=== PATIENT | male | born 1970 | race Caucasian/White ===

== ENCOUNTER 2024-11-25 23:00 | Inpatient (IN) | payer SELFPAY ==
[2024-11-25] VITALS (7 sets, daily range): BP systolic 152–217; BP diastolic 95–123; BMI 24.9; BMI 25.8
--- NOTE | 2024-11-25 15:18 | ED.GENMED ---
History of Present Illness
General
Chief Complaint: Skin Surface Trauma
Source: patient
Time Seen by Provider: 11/25/24 14:39
History of Present Illness
History of Present Illness:
54-year-old male presents to the emergency room complaining of laceration to his left knee. Patient was using a chainsaw when it moved unexpectedly and struck him over the left knee. He suffered a large laceration there was clinic. Patient is
able to weight-bear. He is able to flex and extend at the knee.
Past History
Social History
Tobacco: Smoker
Employment: Employed
Phy Exam
Physical Exam
Physical Exam:
General: Awake, Alert, Oriented X3. No acute distress.
Vitals: unremarkable
Head: Atraumatic
Eyes: Pupils equal, EOMI
Throat: Airway intact, no exudates
Neck: Trachea midline
Lungs: Clear and equal b/l
Heart: Regular rate, no murmurs
Neuro: Nonfocal
Skin: Warm, dry, no rash
Extremities: pulses equal dorsalis pedis and posterior tibial arteries b/l, large at least 10 cm laceration which begins in the central knee and extends medially over the lateral aspect of the knee. Patient is able to lift the leg off the bed with
the knee extended. He has significant pain with passive flexion. The deepest portion of the laceration seems to be medial to the patella. With flexion there was a spurt of fluid which did not appear to originate from the subcutaneous area but
perhaps intra-articularly.
Course
Orders/Labs/Results
Orders:
Orders
11/25/24 14:01
CR Knee - Left 4 Or More View* Urgent
Comment:
Reason For Exam: laceration
11/25/24 15:18
CeFAZolin 2 GRAM [Ancef] 2 grams in 10 ml IV NOW
11/25/24 15:29
Basic Metabolic Panel Urgent
Complete Blood Count/With Diff Urgent
11/25/24 16:36
HYDROmorphone [Dilaudid] 0.5 mg IV NOW STA
11/25/24 16:57
CeFAZolin 2 GRAM [Ancef] 2 grams in 10 ml IV PRE PROCEDURE
Povidone Iodine 10% Solution [Povidone Iodine 10%] 114 ml 0.9% Sod Chloride 3000 ml Irr [Nss Irrigation Bag] 3,000 ml IRRIG OR
11/25/24 16:58
Povidone Iodine 10% Solution [Povidone Iodine 10%] 114 ml 0.9% Sod Chloride 3000 ml Irr [Nss Irrigation Bag] 3,000 ml IRRIG OR
Povidone Iodine 10% Solution [Povidone Iodine 10%] 114 ml 0.9% Sod Chloride 3000 ml Irr [Nss Irrigation Bag] 3,000 ml IRRIG OR
11/25/24 17:00
CeFAZolin 2 GRAM [Ancef] 2 grams in 10 ml IV PRE PROCEDURE
11/25/24 17:47
HYDROmorphone [Dilaudid] 0.25 mg IV PACU-Q5MPRN PRN
HYDROmorphone [Dilaudid] 0.5 mg IV PACU-Q5MPRN PRN
Meperidine [Demerol] 12.5 mg IV PACU-Q5MPRN PRN
Ondansetron Injectable [Zofran] 4 mg IV PACU-ONCEPRN PRN
Prochlorperazine [Compazine] 5 mg IV PACU-ONCEPRN PRN
Notify MD As Directed
Notify physician if: for SDS patients with known or suspected sleep obstructive sleep apnea, monitor in the
PACU.
Notify MD for any apneic/desaturation episodes
O2 Therapy [RESP] Urgent
Titrate/Wean O2 to maintain O2 sat greater than (%): 92
Special Instructions: -Provide supplemental oxygen to achieve O2 sat of 92% or greater.
-After 15 min, may wean O2 and discontinue if patient is able to maintain O2 sat of 92%
or greater during recovery period.
If patient is a discharge home, without oxygen therapy, notify anestheiologist if
unable to maintain O2 SAT of 92% or greater on room air for MD clearance.
11/25/24 18:00
Normosol (Mult Electrolytes) [Normosol-R/Plasmalyte-A] 1,000 ml IV PER PROTOCOL
11/25/24 18:15
Normosol (Mult Electrolytes) [Normosol-R/Plasmalyte-A] 1,000 ml IV PER PROTOCOL
11/25/24 19:40
HYDROmorphone [Dilaudid] 0.25 mg IV PACU-Q5MPRN PRN
HYDROmorphone [Dilaudid] 0.5 mg IV PACU-Q5MPRN PRN
Meperidine [Demerol] 12.5 mg IV PACU-Q5MPRN PRN
Ondansetron Injectable [Zofran] 4 mg IV PACU-ONCEPRN PRN
Prochlorperazine [Compazine] 5 mg IV PACU-ONCEPRN PRN
Notify MD As Directed
Notify physician if: for SDS patients with known or suspected sleep obstructive sleep apnea, monitor in the
PACU.
Notify MD for any apneic/desaturation episodes
O2 Therapy [RESP] Urgent
Titrate/Wean O2 to maintain O2 sat greater than (%): 92
Special Instructions: -Provide supplemental oxygen to achieve O2 sat of 92% or greater.
-After 15 min, may wean O2 and discontinue if patient is able to maintain O2 sat of 92%
or greater during recovery period.
If patient is a discharge home, without oxygen therapy, notify anestheiologist if
unable to maintain O2 SAT of 92% or greater on room air for MD clearance.
11/25/24 19:45
HYDROmorphone [Dilaudid] 0.25 mg IV PACU-Q5MPRN PRN
HYDROmorphone [Dilaudid] 0.5 mg IV PACU-Q5MPRN PRN
Meperidine [Demerol] 12.5 mg IV PACU-Q5MPRN PRN
Normosol (Mult Electrolytes) [Normosol-R/Plasmalyte-A] 1,000 ml IV PER PROTOCOL
Ondansetron Injectable [Zofran] 4 mg IV PACU-ONCEPRN PRN
Prochlorperazine [Compazine] 5 mg IV PACU-ONCEPRN PRN
Abnormal Lab Results
11/25/24
15:29
Abs Immat Gran (auto) 0.1 H 10^3/uL
(0-0.05)
Absolute Neuts (auto) 7.7 H 10^3/uL
(1.4-6.5)
Immature Gran % 0.6 H %
(0-0.5)
Neutrophils % 78.4 H %
(42.2-75.2)
Lymphocytes % 13.9 L %
(20.5-51.1)
BUN 27 H mg/dl
(9-20)
Glucose 107 H mg/dl
(70-99)
11/25/24 15:29
11/25/24 15:29
Vital Signs
Initial and Last Documented VS:
Initial Vital Signs
Temp Pulse Resp BP Pulse Ox
97.9 F 112 16 217/117 99
11/25/24 13:55 11/25/24 13:55 11/25/24 13:55 11/25/24 13:55 11/25/24 13:55
Last Documented Vital Signs
Temp Pulse Resp BP Pulse Ox
97.9 F 90 16 189/123 98
11/25/24 13:55 11/25/24 16:51 11/25/24 16:51 11/25/24 16:51 11/25/24 16:51
MDM/Problems Addressed
Differential Diagnosis Includes:
Bony injury, tendon injury, joint capsule violation
MDM/Problems Addressed:
Patient presents with large laceration over the left knee. The laceration extends into the deeper tissues. I am concerned that the joint space has been violated. There is intra-articular air noted on the knee x-ray. I communicated with
orthopedics on-call, Dr. High via [place] text at 3:17 PM. The text was read.
4:46pm, pt evaluated by ortho.....plan is OR for washout when OR available.
*Radiology
Radiology exam reviewed: preliminary read by ED provider (No fracture noted, questionable air in the knee joint)
*Pulse Oximetry
Patient hypoxic: no
*Critical Care Note
Total Time (30-74mins, 75-104mins- exclusive of procedures): Not Applicable
ED Attending Note
-
Portions of this chart may have been created with voice recognition software.� Occasional wrong word or��sound alike� substitutions may have occurred due to the inherent limitations of voice recognition software.
Discharge Plan
Departure
Patient Disposition: OR
Date of Disposition: 11/25/24
Time of Disposition: 16:46
Presentation/result/management discussed w/ accepting MD/DO: Dr High
Condition: Fair
Discharge Problem:
Knee laceration, Joint capsule tear
Interventions
Interventions:
*Risk Screen - Suicide Last Done: 11/25/24 13:55
*General Assessment Last Done: 11/25/24 17:09
*Neglect/Abuse Screening Last Done: 11/25/24 13:55
*ED COVID-19 Vaccine History Last Done: 11/25/24 17:09
*Nursing Disposition Last Done: 11/25/24 18:03
ED-Skin Assessment Last Done: 11/25/24 14:51
Discharge Date and Time
Discharge Date/Time: 11/25/24 18:03
[2024-11-25] MEDS: ANCEF 10 IV (15:29)
[2024-11-25 15:47] LABS: % Basophils 0.5 % (0-2); % Immature Granulocytes 0.6 % (0-0.5); % Lymphocytes 13.9 % (20.5-51.1); % Monocytes 5.6 % (1.7-9.3); % Neutrophils 78.4 % (42.2-75.2); Absolute Basophils 0.1 10^3/uL (0-0.2); Absolute Eosinophils 0.1 10^3/uL (0-0.7); Absolute Immature Granulocytes 0.1 10^3/uL (0-0.05); Absolute Lymphocytes 1.4 10^3/uL (1.2-3.4); Absolute Monocytes 0.6 10^3/uL (0.1-0.6); Absolute Neutrophils 7.7 10^3/uL (1.4-6.5); Hematocrit 47.5 % (39.0-52.0); Hemoglobin 16.1 g/dL (13.0-18.0); Mean Corp Hgb Conc. 33.9 g/dL (33.0-37.0); Mean Corpuscular Hgb 29.1 pg (27.0-31.0); Mean Corpuscular Volume 85.9 fL (80.0-94.0); Mean Platelet Volume 9.2 fL (7.4-10.4); Nucleated Red Blood Cells % 0 % (-); Platelet Count 230 10^3/uL (130-400); Red Blood Cell Count 5.53 10^6/uL (4.70-6.10); Red Cell Dist. Width 13.2 % (11.5-14.5); White Blood Cell Count 9.8 10^3/uL (4.8-10.8)
[2024-11-25 16:00] LABS: Blood Urea Nitrogen 27 mg/dl (9-20); Calcium 9.5 mg/dl (8.4-10.2); Carbon Dioxide 24 mmol/L (22-30); Chloride 101 mmol/L (98-107); Glucose 107 mg/dl (70-99); Potassium 4.1 mmol/L (3.5-5.1); Sodium 137 mmol/L (135-145); eGFR > 60.00
[2024-11-25] MEDS: DILAUDID 0.5 MG IV ×2 (16:42→19:50)
--- NOTE | 2024-11-25 16:58 | CON.ORTHO ---
Documented by User: Emani Saravia PA-C 11/25/24 17:29
Consultation
-
Date/Time Consultation Requested: 11/25/2024; time unknown
Date/Time Consultation Performed: 11/25/2024; 1630
Requesting Provider: Dr. Galvez
Performing Provider: Emani Saravia PA-C for Dr. Juvencio High
Reason for Consultation: Left knee laceration
Consultation - Orthopedics
History
Mr. Hinojosa is a 54 year old male with no reported past medical history seen today for a laceration sustained to his left knee. He reports he was kneeling on the ground while using a chainsaw when the chainsaw moved unexpectedly. The chainsaw fell
and hit his left knee which resulted in a large laceration. He was able to get up and walk around following the incident, but he does state that it is painful. He endorses aching pain about the knee that is more intense with any movement of the
knee. He denies injury or treatment for his knee in the past.
He denies known history of DM, DVT, CVA or PR. He reports he has not required anesthesia. He does not take daily blood thinners. He does smoke.
Allergies / Home Medications
Allergy/AdvReac Type Severity Reaction Status Date / Time
No Known Allergies Allergy Unverified 01/16/12 19:57
�Medication �Instructions �Recorded
No Meds [No Current Medications] 11/25/24
Vital Signs / Lab Results
Temp Pulse Resp BP Pulse Ox
97.9 F 90 16 189/123 98
11/25/24 13:55 11/25/24 16:51 11/25/24 16:51 11/25/24 16:51 11/25/24 16:51
11/25/24 15:29
11/25/24 15:29
XR Left Knee IMPRESSION:
Air/gas in the medial aspect of the femorotibial joint and in the suprapatellar region, likely posttraumatic.
Directed exam of the left knee reveals large, ~10 cm laceration over the anterior/medial knee. There is no obvious communication with the joint on observation alone. No active drainage or bleeding at present. Patient able to flex and extend knee
with significant pain. Able to straight leg raise. Tenderness to palpation surrounding the laceration and about the suprapatellar pouch. Calf soft and nontender. Neurovascularly intact distally.
Assessment / Plan
Left knee laceration
--Mr. Hinojosa sustained a large laceration to the medial aspect of his knee. Thankfully, his extensor mechanism is intact. That being said, I am concerned that there is communication with his joint, given the air noted on his x-ray. I recommend
proceeding with surgical irrigation and debridement with wound closure. The risks, benefits, alternatives, recovery process and potential complications were discussed in detail. He would like to proceed with surgical intervention. We will proceed
with this today under the direction of Dr. High. Surgical and blood consents are signed and scanned into the patient's chart. Paper copy is at OR desk. Antibiotics and irrigation ordered to OR.
--Ancef given in ER.
--Pain control prn.

Documented by User: Juvencio High MD 11/25/24 18:17
Consultation - Orthopedics
History
Patient seen and evaluated by Dr. High.
Mr. Hinojosa is a 54 year old male with no reported past medical history seen today for a laceration sustained to his left knee. He reports he was kneeling on the ground while using a chainsaw when the chainsaw moved unexpectedly. The chainsaw fell
and hit his left knee which resulted in a large laceration. He was able to get up and walk around following the incident, but he does state that it is painful. He endorses aching pain about the knee that is more intense with any movement of the
knee. He denies injury or treatment for his knee in the past.
He denies known history of DM, DVT, CVA or PR. He reports he has not required anesthesia. He does not take daily blood thinners. He does smoke.
--- NOTE | 2024-11-25 20:15 | PTCARENOTE ---
pt waiting in pacu holding for OR, pt here over 1 hr, no IVF running, pt c/o pain left knee, headache, states no fluid since 1200. Multiple calls to pharmacy and admissions to get MAR pain meds active, as they had been discontinued. Call placed to
anesthesia to ok meds no response, also no answer in OR where Dr High working. Once pain meds active, pain med given w/improvement in pain. Normosol infusing via 20ga left AC
[2024-11-25] MEDS: NSS 1000 IV (23:02)
[2024-11-25] MEDS: ROXICODONE 5 MG PO (23:07)
[2024-11-26] VITALS (7 sets, daily range): BP systolic 130–163; BP diastolic 90–99; PULSE 93–95; O2SAT 97; BMI 25.8
[2024-11-26] MEDS: ANCEF 5 IV ×2 (03:46→10:55)
[2024-11-26] MEDS: ROXICODONE 5 MG PO (06:31)
[2024-11-26] MEDS: CELEBREX 100 MG PO (08:15)
[2024-11-26] MEDS: SENOKOT 17.2 MG PO (08:15)
[2024-11-26] MEDS: COLACE 100 MG PO (08:15)
--- NOTE | 2024-11-26 08:15 | W.PN.ORTHO ---
Today's Communication / Plan
-
54-year-old male postoperative day 1 from left knee traumatic arthrotomy debridement irrigation with Dr. High
-Pain controlled with current regimen
-IV antibiotics as ordered and will transition to outpatient Keflex
-ASA 325 mg daily x 30 days for DVT prophylaxis, SCDs while in bed
-Regular diet
-Knee immobilizer. May be weightbearing as tolerated with walker but maintain strict knee extension.
Plan admission for 24 hours for observation and for IV e antibiotics. Discharge information up-to-date with planned outpatient follow-up on Monday at our ambulatory clinic on the campus of [facility] with LOCO Falk at 1:15 PM for a
wound check
Assessment
.
Distal Motor Intact: Yes
Dressing:
Clean, dry and intact.
Plan
.
Surgery / Date: 11/25/24 L knee I&D Dr. High
DVT Prophylaxis: Aspirin
Activity:
Out of bed.
PT/OT
Discharge Plan: Home
Subjective
.
.:
Patient resting comfortably.
Vital Signs and Labs
.
Vital Signs and Labs:
Lab Results
11/25/24 15:29
11/25/24 15:29
Temp Pulse Resp BP Pulse Ox
97.7 F 77 18 149/99 98
11/26/24 02:18 11/26/24 02:18 11/26/24 02:18 11/26/24 02:18 11/26/24 02:18
--- NOTE | 2024-11-26 09:09 | W.DCSUMMARY ---
Discharge Summary
Discharge Data
Date of Admission: 11/25/24
Date of Discharge: 11/26/24
Total time spent discharging patient (in min): 30
-
Pending Results: No
Hospital Course
The patient underwent a left knee debridement and irrigation for traumatic arthrotomy November 25, [address] High without complications. The patient recovered in PACU and was transferred to the floor. The post-operative course remained
uncomplicated. At the time of discharge, the patient was noted to be tolerating a regular diet, ambulating with adherence to weight bearing and activity restrictions, able to accomplish activities of daily living at baseline level, and had pain
controlled on oral medications. Prior to discharge, the patient was provided with appropriate discharge/follow up/return instructions, and discharge medications.
Discharge Plan
-
Patient Disposition: Home (Routine Discharge)
Discharge Diagnosis/Procedures: Left knee traumatic arthrotomy debridement irrigation with Dr. High 25 November 2024
Condition: Good
Diet: No restrictions
Activity: With Walker
Additional Activity: Weightbearing as tolerated with knee maintained in strict extension utilizing a brace
Driving Restrictions: Not until seen by your Dr
Bathing Restrictions: After dressing removed
Wound Care: Maintain dressings until outpatient follow-up
Referrals:
Yakov Olivera MD [Family Provider] -
Suresh Falk PA-C [Specified Professional Personl] - (Currently scheduled for this Monday at 1:15 PM at our ambulatory outpatient clinic on the campus at [facility] 29 November 2024. Please contact with any issues with this appointment)
Prescriptions:
New
oxycodone 5 mg Tablet
5 mg PO Q6H Qty: 20 0RF
aspirin 325 mg Tablet
325 mg PO DAILY@1800 Qty: 30 0RF
cephalexin 500 mg capsule
500 mg PO QID Qty: 40 0RF
Discharge Orders:
Discharge Patient (As Directed); Ordered 11/26/24
Ordered By: Andrés Bautista
Discharge Date and Time
Print Language: KAZAKH
--- NOTE | 2024-11-26 09:16 | W.PN.UPDATE ---
Update Note
Progress Note Update
Please note medications were sent through [facility] to pharmacy on file of [facility] listed address on [address] [facility] [address] [facility] and [place]
--- NOTE | 2024-11-26 10:42 | CM ---
Addendum entered by Abbey Fraire RN 11/27/24 08:03:
Patient was provided with [facility] info, as well as, [facility] info.
Original Note:
Reviewed the chart notes and spoke with the patient at the bedside. Confirmed with the patient that he has no insurance. HRSI pending. The patient resides with his mother in a two story home with one step to enter. The patient reports have a
rolling walker in home. No VN or SNF in the past. The patient confirmed [facility] [address] [facility] CM continues to be available to patient/family and is monitoring medical plan for needs at discharge.
Plan: Discharge to home when medically stable.
[2024-11-26] MEDS: NSS IV (10:53)
[2024-11-26] MEDS: ROXICODONE 10 MG PO (16:09)
[2024-11-26] MEDS: ASPIRIN 325 MG PO (17:06)
== END 2024-11-26 18:15 | disposition home or self-care (01) | DRG 581 ==
LOC: 2 NORTH 23:00
PROVIDERS: ADMITTING PHYSICIAN Specialist; EMERGENCY PHYSICIAN Emergency Medicine; FAMILY PHYSICIAN Family Medicine
PROC: 0LDR0ZZ Extraction of Left Knee Tendon, Open Approach (ICD-10-PCS; 2024-11-25)
DX: S81.012A Laceration without foreign body, left knee, initial encounter (principal); I10 Essential (primary) hypertension; W31.2XXA Contact with powered woodworking and forming machines, initial encounter; F17.200 Nicotine dependence, unspecified, uncomplicated
CPT/HCPCS: 73564; 80048; 85025; 96374; 96375; 96376; 97116; 97162; 97166; 97530; 99285